=== PATIENT | female | born 1985 | race African-American/Black ===

== ENCOUNTER 2018-03-31 16:01 | Inpatient (IN) ==
[~2018-03-31 16:01] MED LIST: EPHEDRINE SULFATE INJ ONE; MARCAINE SPINAL ONE; NS IRRIGATION 1000 ML ONE; PITOCIN ONE; VERSED ONE; XYLOCAINE 1 % (PLAIN) ONE
[2018-03-31 16:27] VITALS: BMI 22.6
[2018-03-31 16:44] LABS: BILIRUBIN,URINE NEGATIVE (NEGATIVE); BLOOD/HEMOGLOBIN,URINE NEGATIVE (NEGATIVE); GLUCOSE, URINE NEGATIVE (NEGATIVE); KETONES,URINE 2+ (NEGATIVE); LEUKOCYTE ESTERASE ,URINE NEGATIVE (NEGATIVE); NITRITES,URINE NEGATIVE (NEGATIVE); PROTEIN,URINE NEGATIVE (NEGATIVE); UROBILINOGEN,URINE NORMAL (NORMAL)
[2018-03-31 16:47] LABS: APPEARANCE,URINE CLEAR (CLEAR); COLOR,URINE YELLOW (YELLOW)
[2018-03-31 16:55] LABS: AMNISURE ROM TEST NO MEMBRANES RUPTURE (NO RUPTURE)
[2018-03-31] MEDS ORDERED: ANCEF VIAL 1 GRAM IVP ONE (17:44)
[2018-03-31] MEDS ORDERED: LR 1000 ML IV 1,000 ML IV ONE (17:58)
[2018-03-31] MEDS ORDERED: D5 1/2 NS 1000 ML 1,000 ML IV SCH (18:00)
[2018-03-31 18:02] LABS: BASOPHILS # (AUTO) 0.1 X10^3/uL (0.0-0.1); BASOPHILS % (AUTO) 0.8 % (0.2-1.0); EOSINOPHILS # (AUTO) 0.1 x10^3/uL (0.0-0.2); EOSINOPHILS % (AUTO) 0.5 % (0.9-2.9); HEMATOCRIT 33.1 % (36.0-47.0); HEMOGLOBIN 11.2 g/dL (12.0-16.0); LYMPHOCYTES # (AUTO) 1.6 X10^3/uL (1.3-2.9); MEAN CORPUSCULAR HEMOGLOBIN 29.3 pg (27.0-34.0); MEAN CORPUSCULAR HGB CONC 33.9 g/dL (33.0-35.0); MEAN CORPUSCULAR VOLUME 86.3 fL (80.0-100.0); MEAN PLATELET VOLUME 8.7 fL (7.4-11.0); MONOCYTES # (AUTO) 1.1 x10^3/uL (0.3-0.8); MONOCYTES % (AUTO) 10.5 % (0.0-13.0); NEUTROPHILS # (AUTO) 7.4 x10^3/uL (2.2-4.8); NEUTROPHILS % (AUTO) 72.2 % (42.0-75.0); PLATELET COUNT 147 X10^3/uL (150.0-450.0); RED BLOOD COUNT 3.84 X10^6/uL (3.5-5.4); RED CELL DISTRIBUTION WIDTH 14.9 % (11.6-16.5); WHITE BLOOD COUNT 10.3 X10^3/uL (3.6-10.0)
[2018-03-31] MEDS ORDERED: ANCEF 1 GRAM IV PREMIX* 1 G/50 ML BAG IV ONE (18:04)
[2018-03-31 18:14] LABS: ALANINE AMINOTRANSFERASE 16 Units/L (12-78); ALBUMIN 2.6 g/dL (3.4-5.0); ALKALINE PHOSPHATASE 154 Units/L (46-116); ASPARTATE AMINO TRANSFERASE 18 Units/L (15-37); BLOOD UREA NITROGEN 8 mg/dL (7-18); CALCIUM 8.2 mg/dL (8.5-10.1); CARBON DIOXIDE 21.5 mmol/L (21-32); CHLORIDE 104 mmol/L (98-107); COR CA(FOR HYPOALB) 9.3 mg/dL (8.5-10.1); CREATININE 0.41 mg/dL (0.55-1.02); SODIUM 138 mmol/L (136-145); TOTAL PROTEIN 6.9 g/dL (6.4-8.2); eGFR NON BLACK RACES > 60 (>60)
[2018-03-31] MEDS ORDERED: DURAMORPH ONE (18:17)
[2018-03-31] MEDS ORDERED: D5 1/2 NS 1L W PITOCIN 20 UNITS/L 20 UNITS/1,000 ML BAG IV ONE (19:01)
[2018-03-31] MEDS ORDERED: DILAUDID INJ IVP PRN (19:25)
[2018-03-31] MEDS ORDERED: BENADRYL INJ 50 MG VIAL IVP PRN (19:25)
[2018-03-31] MEDS ORDERED: PHENERGAN INJ 25 MG IVP PRN (19:25)
[2018-03-31] MEDS ORDERED: REGLAN INJ 10 MG VIAL IVP PRN ×2 (19:25→20:05)
[2018-03-31] MEDS ORDERED: ZOFRAN INJ 4 MG VIAL IVP PRN ×2 (19:25→20:05)
[2018-03-31] MEDS ORDERED: MYLICON TAB 80 MG CHEW PO PRN (20:05)
[2018-03-31] MEDS ORDERED: D5 1/2 NS 1000 ML 1,000 ML with PITOCIN 20 UNITS IV SCH ×2 (20:05)
[2018-03-31] MEDS ORDERED: ADACEL or BOOSTRIX TDaP VACCINE IM ONE (20:05)
[2018-03-31] MEDS ORDERED: TORADOL 30 MG VIAL IVP PRN (20:05)
[2018-03-31] MEDS ORDERED: PERCOCET TAB 5/325 MG PO PRN (20:05)
[2018-03-31] MEDS ORDERED: NARCAN INJ IVP PRN (20:05)
[2018-03-31] MEDS: ZANTAC PO SCH (22:04)
[2018-04-01] MEDS: BENADRYL INJ 50 MG VIAL IVP PRN ×2 (01:09→05:30)
[2018-04-01] MEDS ORDERED: D5 1/2 NS 1000 ML 1,000 ML IV SCH (02:00)
[2018-04-01 05:19] LABS: HEMATOCRIT 30.3 % (36.0-47.0)
[2018-04-01] MEDS: COLACE CAP 100 MG PO SCH ×2 (11:06→21:05)
[2018-04-01] MEDS: ZANTAC PO SCH ×3 (11:06→21:05)
[2018-04-01] MEDS: PRENATAL PLUS PO SCH (11:06)
[2018-04-01] MEDS: BACTROBAN CREAM TOP SCH ×2 (13:53→21:06)
[2018-04-01] MEDS: MOTRIN TAB 800 MG PO PRN ×2 (15:09→21:09)
[2018-04-01] MEDS: PERCOCET TAB 5/325 MG PO PRN (18:12)
[2018-04-02] MEDS: BACTROBAN CREAM TOP SCH ×2 (05:25→13:30)
[2018-04-02] MEDS: PERCOCET TAB 5/325 MG PO PRN (07:26)
[2018-04-02] MEDS: MOTRIN TAB 800 MG PO PRN (10:08)
[2018-04-02] MEDS: COLACE CAP 100 MG PO SCH (10:08)
[2018-04-02] MEDS: PRENATAL PLUS PO SCH (10:08)
[2018-04-02] MEDS: ZANTAC PO SCH (10:10)
[2018-04-02 14:04] VITALS: BP 113/66
== END 2018-04-02 14:30 | disposition home or self-care (01) | DRG 788 ==
LOC: ER 16:01 → LD 18:05 → MED/SURG 20:12
PROVIDERS: ADMIT Specialist; ATTEND Specialist
DX: Z3A.38 38 weeks gestation of pregnancy; Z23 Encounter for immunization; Z37.0 Single live birth; O99.013 Anemia complicating pregnancy, third trimester; N85.8 Other specified noninflammatory disorders of uterus; D50.8 Other iron deficiency anemias; O34.211 Maternal care for low transverse scar from previous cesarean delivery
CPT/HCPCS: 36415; 80053; 81003; 84112; 85014; 85018; 85025; 86592; 86850; 86900; 86901; 90715; 99283; 99284; A4216; A4222; S0197; J0690; J1200; J1885; J2250; J2590; J3490; J7120